=== PATIENT | female | born 1980 ===

== ENCOUNTER 2022-07-25 04:31 | Inpatient (IN) | payer OTHER ==
[2022-07-20 14:04] VITALS: BMI 34.3
[2022-07-25] MEDS ORDERED: BENZOIN/ALOE VERA/STORAX/TOLU 58 ML BOTTLE ONE (08:53)
[2022-07-25] MEDS ORDERED: BUPIVACAINE HCL/PF 0.5% (5MG/ML) 10 ML VIAL ONE (09:04)
[2022-07-25] MEDS ORDERED: BUPIVACAINE LIPOSOME/PF (EXPAREL) 266 MG/20 ML VIAL ONE (09:04)
[2022-07-25] MEDS ORDERED: ROCURONIUM BROMIDE 50 MG/5 ML SYRINGE ONE ×2 (09:07→10:50)
[2022-07-25] MEDS ORDERED: PROPOFOL 20 ML ONE ×2 (09:07→12:16)
[2022-07-25] MEDS ORDERED: MIDAZOLAM HCL 2 MG/2 ML SINGLE DOSE VIAL ONE ×2 (09:07→09:08)
[2022-07-25] MEDS ORDERED: LIDOCAINE HCL/PF 2% SDV 5ML VIAL ONE (09:09)
[2022-07-25] MEDS ORDERED: ONDANSETRON 4 MG/2 ML VIAL IVPUSH PRN ×2 (09:24→12:37)
[2022-07-25] MEDS ORDERED: PROMETHAZINE HCL 25 MG/1 ML VIAL IVPUSH PRN (09:24)
[2022-07-25] MEDS ORDERED: CEFAZOLIN 2 GM in DEXTROSE 5%-WATER - 100 ML IVPB ONE (09:41)
[2022-07-25] MEDS ORDERED: TRANEXAMIC ACID 1000 MG/10 ML VIAL IVPB ONE (09:41)
[2022-07-25] MEDS ORDERED: ceFAZolin SODIUM 1 GM VIAL IVPB ONE (10:12)
[2022-07-25] MEDS ORDERED: SODIUM CHLORIDE 0.9% P/F 10 ML VIAL IJ ONE (10:12)
[2022-07-25] MEDS ORDERED: ceFAZolin SODIUM 1 GM VIAL ONE (10:12)
[2022-07-25] MEDS ORDERED: TRANEXAMIC ACID 1000 MG/10 ML VIAL ONE (10:13)
[2022-07-25] MEDS ORDERED: ONDANSETRON 4 MG/2 ML VIAL ONE (10:19)
[2022-07-25] MEDS ORDERED: DEXAMETHASONE SOD PHOSPHATE 4 MG/1 ML VIAL ONE (10:19)
[2022-07-25] MEDS ORDERED: KETOROLAC TROMETHAMINE 30 MG/1 ML VIAL ONE (11:56)
[2022-07-25] MEDS ORDERED: NEOSTIGMINE METHYLSULFATE 0.5 MG/ML - 10 ML MDV ONE (11:58)
[2022-07-25] MEDS ORDERED: GLYCOPYRROLATE 0.2 MG/1 ML VIAL ONE (11:58)
[2022-07-25] MEDS ORDERED: ACETAMINOPHEN INJECTION 100 ML IVPB ONE (12:07)
[2022-07-25] MEDS ORDERED: IBUPROFEN 800 MG/8 ML IJ IVPB PRN (12:33)
[2022-07-25] MEDS ORDERED: ACETAMINOPHEN 1000 MG/100 ML BAG IVPB PRN (12:34)
[2022-07-25] MEDS ORDERED: oxyCODONE HCL 5 MG TABLET PO PRN (12:36)
[2022-07-25] MEDS ORDERED: PROMETHAZINE HCL 25 MG/1 ML VIAL IVPB PRN (12:37)
[2022-07-25] MEDS ORDERED: DEXAMETHASONE SOD PHOSPHATE 4 MG/1 ML VIAL IVPUSH PRN (12:37)
[2022-07-25] MEDS ORDERED: DEXTROSE 5%-LACTATED RINGERS 1,000 ML IV SCH (12:45)
[2022-07-25] MEDS: HYDROmorphone *PCA* 10MG/50ML DISP.SYRIN PCA SCH (12:53)
[2022-07-25] MEDS: LACTATED RINGERS SOLUTION 1,000 ML IV SCH (15:21)
[2022-07-25] MEDS: CEFAZOLIN SODIUM 2 GM in DEXTROSE 5%-WATER 100 ML IVPB SCH (17:48)
[2022-07-25] MEDS ORDERED: CEFAZOLIN 2 GM in DEXTROSE 5%-WATER - 100 ML IVPB SCH (18:00)
[2022-07-26] MEDS: CEFAZOLIN SODIUM 2 GM in DEXTROSE 5%-WATER 100 ML IVPB SCH (01:08)
[2022-07-26 07:45] LABS: BASO % 0.3 % (0-2.0); HEMATOCRIT 28.4 % (32.4-45.2); MCH 24.8 pg (25.7-33.7); MCHC 31.8 g/dl (32.0-36.0); MEAN CELL VOLUME 77.9 fl (80-96); MEAN PLT VOLUME 8.4 fl (7.5-11.1); MONO % 9.9 % (3.8-10.2); NEUT % 66.8 % (42.8-82.8); PLATELET COUNT 219 10^3/uL (134-434); RBC 3.64 M/mm3 (3.60-5.2); RDW 19.2 % (11.6-15.6); WHITE BLOOD COUNT 8.5 K/mm3 (4.0-10.0)
[2022-07-26] MEDS: LACTATED RINGERS SOLUTION 1,000 ML IV SCH ×2 (07:57→09:31)
[2022-07-26 08:08] LABS: CALCIUM 8.4 mg/dL (8.5-10.1)
[2022-07-26 08:09] LABS: ALBUMIN 2.8 g/dl (3.4-5.0); BLOOD UREA NITROGEN 7.3 mg/dL (7-18)
[2022-07-26 08:12] LABS: CREATININE 0.5 mg/dL (0.55-1.3)
[2022-07-26 08:14] LABS: BILIRUBIN,TOTAL 0.4 mg/dL (0.2-1)
[2022-07-26] MEDS: HYDROmorphone *PCA* 10MG/50ML DISP.SYRIN PCA SCH (12:45)
[2022-07-26] MEDS: oxyCODONE HCL 5 MG TABLET PO PRN ×2 (15:33→20:50)
[2022-07-26] MEDS: DOCUSATE SODIUM 100 MG CAPSULE (FP) PO PRN (20:50)
[2022-07-26 22:37] VITALS: BP 106/66
[2022-07-27] MEDS ORDERED: ACETAMINOPHEN 325 MG TABLET (FP) ONE (09:04)
[2022-07-27] MEDS: DOCUSATE SODIUM 100 MG CAPSULE (FP) PO PRN (09:06)
[2022-07-27 10:17] VITALS: PULSE 94; RESP 16; TEMP 99.4
== END 2022-07-27 10:20 | disposition home or self-care (01) | DRG 743 ==
LOC: J2C 04:31 → J3W 15:14
PROVIDERS: ADMIT Obstetrics & Gynecology; ATTEND Obstetrics & Gynecology
PROC: 0UT70ZZ Resection of Bilateral Fallopian Tubes, Open Approach (ICD-10-PCS; 2022-07-25)
PROC: 0UT90ZL Resection of Uterus, Supracervical, Open Approach (ICD-10-PCS; principal; 2022-07-25 09:00)
DX: D25.9 Leiomyoma of uterus, unspecified (principal); N92.1 Excessive and frequent menstruation with irregular cycle
CPT/HCPCS: 36415; 80053; 81025; 85025; 86850; 86900; 86901; 88302-TC; 88307-TC; 94760